=== PATIENT | female | born 1975 | race Caucasian/White ===

== ENCOUNTER 2024-08-20 14:56 | Inpatient (IN) | payer OTHER, SELFPAY ==
[2024-08-20] VITALS (16 sets, daily range): BP systolic 97–154; BP diastolic 46–97; BMI 37.2
[2024-08-20 13:34] LABS: % Basophils 0.6 % (0-2); % Eosinophils 3.7 % (0-6); % Immature Granulocytes 0.4 % (0-0.5); % Lymphocytes 34.8 % (20.5-51.1); % Monocytes 7.1 % (1.7-9.3); % Neutrophils 53.4 % (42.2-75.2); Absolute Basophils 0.1 10^3/uL (0-0.2); Absolute Eosinophils 0.3 10^3/uL (0-0.7); Absolute Lymphocytes 2.8 10^3/uL (1.2-3.4); Absolute Monocytes 0.6 10^3/uL (0.1-0.6); Absolute Neutrophils 4.2 10^3/uL (1.4-6.5); Hematocrit 42.2 % (37.0-47.0); Hemoglobin 13.4 g/dL (12.0-16.0); Mean Corp Hgb Conc. 31.8 g/dL (33.0-37.0); Mean Corpuscular Hgb 24.7 pg (27.0-31.0); Mean Corpuscular Volume 77.9 fL (81.0-99.0); Mean Platelet Volume 10.3 fL (7.4-10.4); Nucleated Red Blood Cells % 0 %; Platelet Count 265 10^3/uL (130-400); Red Blood Cell Count 5.42 10^6/uL (4.20-5.40); Red Cell Dist. Width 16.4 % (11.5-14.5); White Blood Cell Count 7.9 10^3/uL (4.8-10.8)
[2024-08-20] MEDS: CARDIZEM 10 MG IV (13:40)
[2024-08-20 14:09] LABS: HCG, Serum Qualitative Screen Negative
[2024-08-20] MEDS: NSS 1000 IV (14:10)
[2024-08-20] MEDS: CARDIZEM 125 IV (14:11)
[2024-08-20 14:12] LABS: ALT (SGPT) 35 U/L (0-35); AST (SGOT) 34 U/L (14-36); Albumin 4.7 g/dl (3.5-5.0); Alkaline Phosphatase 78 U/L (38-126); Blood Urea Nitrogen 16 mg/dl (7-17); Calcium 10.1 mg/dl (8.4-10.2); Carbon Dioxide 25 mmol/L (22-30); Chloride 108 mmol/L (98-107); Estimated Creatinine Clearance -9 ml/min; Glucose 96 mg/dl (70-99); Magnesium 2.4 mg/dl (1.6-2.3); Potassium 4.1 mmol/L (3.5-5.1); Sodium 145 mmol/L (135-145); Total Bilirubin 1.4 mg/dl (0.2-1.3); Total Protein 7.8 g/dl (6.3-8.2); eGFR > 60.00
--- NOTE | 2024-08-20 14:17 | ED.GENMED ---
History of Present Illness
<Shu Nielsen PA-C - Last Filed: 08/20/24 15:42>
General
Chief Complaint: Heart Rate Problem
Source: patient
Exam Limitations: none
Time Seen by Provider: 08/20/24 13:07
Nursing documentation reviewed up to this point in time: agreed with
History of Present Illness
History of Present Illness:
49 y/o F with h/o Htn (almodipine) NIDDM
suddenly at 1030 am felt palpitations while at rest; she did get some anxiety and tightness when her rate went up to 140s; called 911, found by EMS to be in afib with RVR, initial bps 140s/80s;
given 10 mg iv dilt;
on arrival felt a little better, with rate slightly slower in the 120-130s
no previuos cp, sob, leg swelling, recent travel
no h/o afib before
no change to meds
no vomiting/diarrhea, alcohol use
Past History
<Shu Nielsen PA-C - Last Filed: 08/20/24 15:42>
Past History
ED Past Medical History: HTN, NIDDM and Psychiatric
Social History
Tobacco: Non-smoker
Alcohol: None
Drug: None
Personal:
Living: with family
Review of Systems
<Shu Nielsen PA-C - Last Filed: 08/20/24 15:42>
Review of Systems
Allergies reviewed?: Yes
All Other Systems: Not applicable
Phy Exam
<Shu Nielsen PA-C - Last Filed: 08/20/24 15:42>
Physical Exam
Physical Exam:
GENERAL: Alert , in no apparent distress
EYE: pupils equal and reactive
NECK: Supple
ENT: o/p clr, mmm.
CARDIAC: Irregularly irregular
LUNGS: Clear breath sounds bilaterally, no acute respiratory distress, no wheezes/rales/rhonchi
ABDOMEN: Soft, without focal tenderness, no r/g, no cvat, normal bowel sounds
NEUROLOGICAL: Alert and oriented, no focal neuro deficits
SKIN: Warm and dry, skin intact.
MUSCULOSKELETAL: No edema, well perfused. neg elinor's sign
PSYCH: Normal and appropriate interaction.
Scores
<Shu Nielsen PA-C - Last Filed: 08/20/24 15:42>
[id number] Score for Afib Stroke Risk
Age in Years (65=0, 65-74=1, >/=75=2): <65
Sex (Female=+1): Female
Congestive Heart Failure History (Yes=+1): No
Hypertension History (Yes=+1): Yes
Stroke/TIA/Thromboembolism History (Yes=+2): No
Vascular Disease History (Yes=+1): No
Diabetes Mellitus (Yes=+1): No
Score: 3
Anticoagulation Recommendations: Recommend anticoagulation (as validated in nonvalvular fib)
<Maryjo Marx DO - Last Filed: 08/20/24 14:29>
[id number] Score for Afib Stroke Risk
Diabetes Mellitus (Yes=+1): Yes
Score: 3
Anticoagulation Recommendations: Recommend anticoagulation (as validated in nonvalvular fib)
Course
<Shu Nielsen PA-C - Last Filed: 08/20/24 15:42>
Orders/Labs/Results
Orders:
Orders
08/20/24
Electrocardiogram (*1) Stat
Reason for Study: Chest Pain
Comment: DONE NO ORDER ENTERED
08/20/24 13:10
Electrocardiogram (*1) Urgent
Reason for Study: Tachycardia
08/20/24 13:11
EKG- Treatment ONCE
Test Result ONCE
08/20/24 13:26
Complete Blood Count/With Diff Urgent
08/20/24 13:29
ECG [Electrocardiogram (*1)] Urgent
Reason for Study: Chest Pain
EKG- Treatment ONCE
08/20/24 13:35
Diltiazem HCl [Cardizem] 25 mg .ROUTE .STK-MED ONE
08/20/24 13:40
Diltiazem HCl [Cardizem] 10 mg IV NOW STA
08/20/24 13:43
Comprehensive Metabolic Panel Urgent
HCG, Serum Qualitative Screen Urgent
Magnesium Urgent
TSH Reflex To Free T4 Urgent
08/20/24 13:57
0.9% Sodium Chloride 1000 ml [Nss] 1,000 ml IV BOLUS
08/20/24 14:00
Diltiazem 125 mg/125 ml Nss [Cardizem] 125 mg in 125 ml IV PER PROTOCOL
Initial dose in mg/hr, then titrate:: 5
Titrate to keep:: Heart rate 80-100 bpm
Titrate by mg/hr:: 5 mg/hr
Frequency of titrations (minutes):: 15
Maximum dose in mg/hr:: 15
08/20/24 14:39
Apixaban [Eliquis] 10 mg PO ONCE ONE
08/20/24 14:43
Admit/Transfer Patient As Directed
Co-Sign Provider:
Level of Care: Inpatient admission
Assign to:: IVU
Physician / Group: daniella
Diagnosis: afib rvr
Reason for Hospitalization: afib rvr
Expected length of stay greater than two midnights?: Yes
ELOS- Estimated Length of Stay in days: 2
I certify the patient meets the requirements for IP care: Yes
Code Status As Directed
Resuscitation Status: Full Code
PRN Pain Medication Management As Directed
May give lesser potent ordered pain med per pt: Yes
preference::
Protocol:: Medication orders for pain may be administered in a
manner that supports deferring to patient preference
when the pt is:
- Requesting an ordered lesser potent pain medication.
Least to most potent pain medications are defined
as: acetaminophen < NSAID < tramadol < opioids
(morphine, oxycodone, hydromorphone).
- Requesting a lesser dose of the same medication IF
ORDERED.
- Requesting a less intrusive route of administration
if both routes are prescribed by the provider (PO <
IV).
Abnormal Lab Results
08/20/24 08/20/24
13: 13:43
RBC 5.42 H 10^6/uL
(4.20-5.40)
MCV 77.9 L fL
(81.0-99.0)
MCH 24.7 L pg
(27.0-31.0)
MCHC 31.8 L g/dL
(33.0-37.0)
RDW 16.4 H %
(11.5-14.5)
Chloride 108 H mmol/L
(98-107)
Magnesium 2.4 H mg/dl
(1.6-2.3)
Total Bilirubin 1.4 H mg/dl
(0.2-1.3)
08/20/24 13:26
08/20/24 13:43
Vital Signs
Initial and Last Documented VS:
Initial Vital Signs
Temp
98.7 F
08/20/24 13:07
Last Documented Vital Signs
Temp Pulse Resp BP Pulse Ox
98.7 F 145 15 110/80 97
08/20/24 13:07 08/20/24 13:33 08/20/24 13:33 08/20/24 13:33 08/20/24 13:33
<Maryjokristie Marx, DO - Last Filed: 08/20/24 14:29>
Orders/Labs/Results
Orders:
Orders
08/20/24
Electrocardiogram (*1) Stat
Reason for Study: Chest Pain
Comment: DONE NO ORDER ENTERED
08/20/24 13:10
Electrocardiogram (*1) Urgent
Reason for Study: Tachycardia
08/20/24 13:11
EKG- Treatment ONCE
Test Result ONCE
08/20/24 13:26
Complete Blood Count/With Diff Urgent
08/20/24 13:29
ECG [Electrocardiogram (*1)] Urgent
Reason for Study: Chest Pain
EKG- Treatment ONCE
08/20/24 13:35
Diltiazem HCl [Cardizem] 25 mg .ROUTE .STK-MED ONE
08/20/24 13:40
Diltiazem HCl [Cardizem] 10 mg IV NOW STA
08/20/24 13:43
Comprehensive Metabolic Panel Urgent
HCG, Serum Qualitative Screen Urgent
Magnesium Urgent
TSH Reflex To Free T4 Urgent
08/20/24 13:57
0.9% Sodium Chloride 1000 ml [Nss] 1,000 ml IV BOLUS
08/20/24 14:00
Diltiazem 125 mg/125 ml Nss [Cardizem] 125 mg in 125 ml IV PER PROTOCOL
Initial dose in mg/hr, then titrate:: 5
Titrate to keep:: Heart rate 80-100 bpm
Titrate by mg/hr:: 5 mg/hr
Frequency of titrations (minutes):: 15
Maximum dose in mg/hr:: 15
08/20/24 14:39
Apixaban [Eliquis] 10 mg PO ONCE ONE
08/20/24 14:43
Admit/Transfer Patient As Directed
Co-Sign Provider:
Level of Care: Inpatient admission
Assign to:: IVU
Physician / Group: daniella
Diagnosis: afib rvr
Reason for Hospitalization: afib rvr
Expected length of stay greater than two midnights?: Yes
ELOS- Estimated Length of Stay in days: 2
I certify the patient meets the requirements for IP care: Yes
Code Status As Directed
Resuscitation Status: Full Code
PRN Pain Medication Management As Directed
May give lesser potent ordered pain med per pt: Yes
preference::
Protocol:: Medication orders for pain may be administered in a
manner that supports deferring to patient preference
when the pt is:
- Requesting an ordered lesser potent pain medication.
Least to most potent pain medications are defined
as: acetaminophen < NSAID < tramadol < opioids
(morphine, oxycodone, hydromorphone).
- Requesting a lesser dose of the same medication IF
ORDERED.
- Requesting a less intrusive route of administration
if both routes are prescribed by the provider (PO <
IV).
Abnormal Lab Results
08/20/24 08/20/24
13:26 13:43
RBC 5.42 H 10^6/uL
(4.20-5.40)
MCV 77.9 L fL
(81.0-99.0)
MCH 24.7 L pg
(27.0-31.0)
MCHC 31.8 L g/dL
(33.0-37.0)
RDW 16.4 H %
(11.5-14.5)
Chloride 108 H mmol/L
(98-107)
Magnesium 2.4 H mg/dl
(1.6-2.3)
Total Bilirubin 1.4 H mg/dl
(0.2-1.3)
08/20/24 13:26
10/07/24 13:43
Vital Signs
Initial and Last Documented VS:
Initial Vital Signs
Temp
98.7 F
08/20/24 13:07
Last Documented Vital Signs
Temp Pulse Resp BP Pulse Ox
98.7 F 145 15 110/80 97
08/20/24 13:07 08/20/24 13:33 08/20/24 13:33 08/20/24 13:33 08/20/24 13:33
<Shu Nielsen PA-C - Last Filed: 08/20/24 15:42>
MDM/Problems Addressed
Differential Diagnosis Includes:
new onset afib with RVR
MDM/Problems Addressed:
slight improvement in rate but still in fib here with rvr with what looks like rate related st depressions; no ches tpain, no distress;
she looks like she is going in and out of sinus/flipping back and forth
my attending saw her, we gave another 10 mg iv dilt and she is going in and out of afib, bewteen a fib and sinus rhythm
rate 110s; bp stable
d/w dr. carbone who recommended IV diltiazem drip
will amdit to hospitalist
chadsvasc 2
eliquis ordered
<Shu Nielsen PA-C - Last Filed: 08/20/24 15:42>
*Critical Care Note
Total Time (30-74mins, 75-104mins- exclusive of procedures): Not Applicable
ED Attending Note
<Shu Nielsen PA-C - Last Filed: 08/20/24 15:42>
-
Portions of this chart may have been created with voice recognition software.� Occasional wrong word or��sound alike� substitutions may have occurred due to the inherent limitations of voice recognition software.
<Maryjo Marx DO - Last Filed: 08/20/24 14:29>
ED Attending Note
Patient seen and examined by attending physician: Yes
I performed the substantive portion of visit, reviewed & personally made and approve the management plan that is documented in note by myself or BRISEIDA.: Yes
I performed a history and physical exam of patient and discussed management with resident, I reviewed resident's note and agree with documented findings and plan of care.: Yes
ED Attending Note:
49-year-old female with history of hypertension and anxiety presenting to the emergency department for palpitations. Patient reports symptoms started prior to arrival, not exertional. Denies associated chest pain or difficulty breathing. Patient
noted to be in atrial fibrillation upon arrival, denies any known history of atrial fibrillation or known cardiac issues. Denies fever or recent illness. Vital signs significant for tachycardia and hypertension.
On exam, patient is resting comfortably, no acute distress. Benign examination with the exception of A-fib with RVR, confirmed by EKG. Patient received 10 mg diltiazem by medics prior to arrival. On the monitor, appears to be going in and out of
atrial fibrillation. Will send laboratory analysis and try additional dose of diltiazem.
14:00 - Patient remains in A-fib. In discussion with cardiology, recommending diltiazem drip and admission. Per [id number], recommendation for anticoagulation. Patient in agreement with plan for admission
Discharge Plan
Departure
Patient Disposition: Admit
Admit to: Telemetry
Presentation/result/management discussed w/ accepting MD/DO: Hospitalist
Condition: Fair
Discharge Problem:
Atrial fibrillation with rapid ventricular response
Interventions
Interventions:
*Risk Screen - Suicide Last Done: 08/20/24 13:11
*General Assessment Last Done: 08/20/24 13:11
*Neglect/Abuse Screening Last Done: 08/20/24 13:11
ED- Cardiac Assessment Last Done: 08/20/24 13:28
ED- Pulmonary Assessment Last Done: 08/20/24 13:28
--- NOTE | 2024-08-20 14:45 | CON.CAR ---
Consultation
Consultation Request
Date/Time Consultation Requested: 08/20 1420
Date/Time Consultation Performed: 08/200
Requesting Provider: Shu Nielsen
Performing Provider: Anirudh Lucero
Reason for Consultation: atrial fibrillation
Medical History
-
Chief Complaint: Palpitations
History of Present Illness:
49-year-old female with a history of hypertension, anxiety, and prediabetes who presents with palpitations. She states that this morning after having her morning black tea and going up the stairs, she suddenly felt her heart racing. She assumed
that it would go away but it continued so she eventually called 911. She denies any chest pain, shortness of breath, lightheadedness, dizziness, syncope, or presyncope with this episode or thereafter. She has no history of heart disease but is
diagnosed with hypertension for which she takes amlodipine 5 mg daily and anxiety for which she takes sertraline 100 mg daily. She was on Ozempic, which was recently switched to Mounjaro (last dose Tuesday). In terms of family history, her mother
had several SVT ablations and hypertension. No other significant family history of cardiac disease. She drinks 2 cups of black tea per day but no other caffeine. No alcohol. She snores at night but has never been told that she has apneic events.
No history of thyroid issues.
Past Medical History
Past Medical History: Other (As above)
Social History
Tobacco: Non-Smoker
Alcohol: None
Drug: None
Personal:
Family History
Family History: Other (As above)
Allergies / Home Medications
Allergy/AdvReac Type Severity Reaction Status Date / Time
No Known Allergies Allergy Unverified 08/20/24 13:18
�Medication �Instructions �Recorded �Confirmed �Type
amlodipine 5 mg tablet (Norvasc) 5 mg PO HS 08/20/24 08/20/24 History
famotidine 20 mg tablet (Pepcid) 20 mg PO DAILYPRN PRN GERD 08/20/24 08/20/24 History
ruxolitinib 1.5 % topical cream 1 applic topical BID BOTH 08/20/24 08/20/24 History
(Opmarinura) HANDS/FEET
sertraline 100 mg tablet 100 mg PO HS 08/20/24 08/20/24 History
tirzepatide 7.5 mg/0.5 mL 7.5 mg SC FR 08/20/24 08/20/24 History
subcutaneous pen injector
(Ping)
Review of Systems
-
History Source: Patient
All other systems: Negative unless noted
Physical Exam
Vital Signs
Temp Pulse Resp BP Pulse Ox
98.7 F 145 15 110/80 97
08/20/24 13:07 08/20/24 13:33 08/20/24 13:33 08/20/24 13:33 08/20/24 13:33
Lab Results
08/20/24 13:26
08/20/24 13:43
ECG: Atrial fibrillation which then transitions to sinus tachycardia, inferior ST depressions when patient is in A-fib which resolve in sinus rhythm
Physical Exam
General: Well Developed and Well Nourished
Cardiac: S1/S2 and Irregular Rhythm (Tachycardic); Negative Murmur, Rub, Peripheral Edema or JVD
Impression / Plan
-
49-year-old female with a history of hypertension, anxiety, and prediabetes who presents with new onset atrial fibrillation.
Atrial fibrillation, acute
-No clear trigger. No history of alcohol use, excessive caffeine, thyroid abnormalities or diagnosed AMRIK
-So far has received IV diltiazem x 2. Start diltiazem infusion
-Monitor telemetry
-[id number] 2. Start Eliquis 5 mg twice daily
-Will need risk factor modification including weight loss
-Recommend outpatient sleep study
-Follow-up echocardiogram
Hypertension, chronic, stable
-Continue home amlodipine 5 mg for now
-Will likely transition to beta-ralph prior to discharge
Anxiety, chronic, stable
-Continue home sertraline
Data Reviewed
-
EKG: Tracing Personally Visualized and interpreted
Labs: Labs Reviewed by me
--- NOTE | 2024-08-20 14:48 | HPS.HSE ---
Family Physician
-
Family Physician: CATRACHO Hagen
Chief Complaint
-
palpitations
History of Present Illness
49-year-old female past medical history of hypertension, prediabetes, atopic dermatitis, anxiety/depression presenting with palpitations suddenly this morning while at rest. Her heart rate went up to 140s. She denies chest pain or shortness of
breath. She called 911 and was found to be in A-fib with RVR by EMS. She was given Cardizem by EMS with some improvement. She denies nausea vomiting or diarrhea.
Mother with history of SVT and hypertension.
She denies smoking or alcohol use.
Medical History
Past Medical History
Past Medical History: Reports Other ( hypertension, prediabetes, atopic dermatitis, anxiety/depression)
Past Surgical History: Reports Other (Cholecystectomy, bilateral knee replacements,)
Social History
Tobacco: Non-smoker
Alcohol: None
Drug: None
Family History
Family History: Not pertinent
Allergies / Home Medications
Allergies reflects when Allergies were last updated in [employer].
Home Medications with original date entered in [employer]
Allergy/Medication List:
Allergies
Allergy/AdvReac Type Severity Reaction Status Date / Time
No Known Allergies Allergy Unverified 08/20/24 13:18
Home Medications
amlodipine 5 mg tablet (Norvasc) 5 mg PO HS 08/20/24
famotidine 20 mg tablet (Pepcid) 20 mg PO DAILYPRN PRN GERD 08/20/24
ruxolitinib 1.5 % topical cream (Opzelura) 1 applic topical BID BOTH HANDS/FEET 08/20/24
sertraline 100 mg tablet 100 mg PO HS 08/20/24
tirzepatide 7.5 mg/0.5 mL subcutaneous pen injector (Mounjaro) 7.5 mg SC FR 08/20/24
Review of Systems
-
History Source: Patient
A 12 point ROS was completed and negative except as noted: Yes
Constitutional: Reports No Symptoms
EENT: Reports No Symptoms
Respiratory: Reports No Symptoms
Cardiac: Reports No Symptoms
Abdomen/GI: Reports No Symptoms
: Reports No Symptoms
Musculoskeletal: Reports No Symptoms
Skin: Reports No Symptoms
Neurological: Reports No Symptoms
Endocrine: Reports No Symptoms
Hematologic/Lymphatic: Reports No Symptoms
Psych: Reports No Symptoms
Physical Exam
Vital Signs
Vital Signs
Temp Pulse Resp BP Pulse Ox
98.7 F 145 15 110/80 97
08/20/24 13:07 08/20/24 13:33 08/20/24 13:33 08/20/24 13:33 08/20/24 13:33
Physical Exam
General: Well Developed, Well Nourished and No Apparent Distress
HEENT: NormoCephalic, Moist mucous membranes and Atraumatic
Respiratory: Clear
Cardiac: S1/S2 and Regular Rhythm; No Murmur or Rub
GI: Soft, Non Tender, Non Distended and Normal Bowel Sounds; No Organomegaly
Rectal: Deferred by Provider
Musculoskeletal: No Clubbing, No Cyanosis and No Edema
Skin: No Rash
Neuro: Nonfocal/grossly intact
Laboratory Results
-
08/20/24 13:26
08/20/24 13:43
Laboratory Results
Total Bilirubin 1.4 mg/dl (0.2-1.3) H 08/20/24 13:43
AST 34 U/L (14-36) 08/20/24 13:43
ALT 35 U/L (0-35) 08/20/24 13:43
Alkaline Phosphatase 78 U/L (38-126) 08/20/24 13:43
Data Reviewed
-
Lab Data: Labs Reviewed by me
Old Records: Reviewed
Impression/Plan
-
IMPRESSION:
PLAN:
# New onset atrial fibrillation with RVR
-IV fluids given
-Cardizem drip
-Eliquis started
-Check TSH
-Check echo
-Cardiology consulted
Essential hypertension
-Hold amlodipine
Atopic dermatitis
-Continue Opzelura
Prediabetes
Obesity
-On Mounjaro
Anxiety/depression
-Continue sertraline
Full code
DVT prophylaxis�Eliquis
Regular diet
[2024-08-20] MEDS: ELIQUIS 10 MG PO (15:04)
[2024-08-20 15:16] LABS: TSH Reflex To Free T4 2.62 uIU/ml (0.47-4.68)
[2024-08-20] MEDS: LOPRESSOR 25 MG PO ×2 (15:55→22:39)
[2024-08-20] MEDS: ZOLOFT 100 MG PO (22:40)
[2024-08-21 06:30] VITALS: BP 134/56
[2024-08-21 06:48] LABS: % Basophils 0.8 % (0-2); % Eosinophils 3.8 % (0-6); % Immature Granulocytes 0.5 % (0-0.5); % Lymphocytes 29.9 % (20.5-51.1); % Monocytes 7.1 % (1.7-9.3); % Neutrophils 57.9 % (42.2-75.2); Absolute Basophils 0.1 10^3/uL (0-0.2); Absolute Eosinophils 0.3 10^3/uL (0-0.7); Absolute Monocytes 0.5 10^3/uL (0.1-0.6); Absolute Neutrophils 3.8 10^3/uL (1.4-6.5); Hematocrit 37.2 % (37.0-47.0); Hemoglobin 12.1 g/dL (12.0-16.0); Mean Corp Hgb Conc. 32.5 g/dL (33.0-37.0); Mean Corpuscular Hgb 25.9 pg (27.0-31.0); Mean Corpuscular Volume 79.5 fL (81.0-99.0); Mean Platelet Volume 10.2 fL (7.4-10.4); Nucleated Red Blood Cells % 0 %; Platelet Count 215 10^3/uL (130-400); Red Blood Cell Count 4.68 10^6/uL (4.20-5.40); Red Cell Dist. Width 16.4 % (11.5-14.5); White Blood Cell Count 6.6 10^3/uL (4.8-10.8)
[2024-08-21 07:06] LABS: ALT (SGPT) 34 U/L (0-35); AST (SGOT) 34 U/L (14-36); Albumin 4.5 g/dl (3.5-5.0); Alkaline Phosphatase 65 U/L (38-126); Blood Urea Nitrogen 20 mg/dl (7-17); Carbon Dioxide 25 mmol/L (22-30); Chloride 106 mmol/L (98-107); Estimated Creatinine Clearance 87 ml/min; Glucose 99 mg/dl (70-99); Potassium 4.2 mmol/L (3.5-5.1); Sodium 143 mmol/L (135-145); Total Bilirubin 1.3 mg/dl (0.2-1.3); Total Protein 7.3 g/dl (6.3-8.2); eGFR > 60.00
--- NOTE | 2024-08-21 08:52 | W.PN.CD ---
Today's Communication / Plan
-
Now in sinus rhythm
Continue metoprolol 25 mg twice daily on discharge. Stop amlodipine.
Continue Eliquis 5 mg twice daily on discharge
Follow-up echocardiogram
Cardiology follow-up here versus [facility]
Impression / Plan
-
49-year-old female with a history of hypertension, anxiety, and prediabetes who presents with new onset atrial fibrillation.
Atrial fibrillation, acute, now in sinus rhythm:
-No clear trigger. No history of alcohol use, excessive caffeine, thyroid abnormalities or diagnosed AMRIK
-Initially required diltiazem infusion. Now transitioned to metoprolol 25 mg twice daily which she should continue on discharge
-Monitor telemetry
-[id number] 2. Continue Eliquis 5 mg twice daily
-Will need risk factor modification including weight loss
-Recommend outpatient sleep study
-Follow-up echocardiogram
-Follow-up with cardiology. She will let us know if she wants to do this here or within the [facility] system.
Hypertension, chronic, stable
-Stop amlodipine. She will monitor BPs at home to see if she needs up titration of metoprolol or alternative antihypertensive.
Anxiety, chronic, stable
-Continue home sertraline
Subjective: Patient feels better now that out of A-fib. We discussed what her diagnosis means going forward and the overall prognosis. She will decide whether or not she wants to follow-up with us here or with [facility] cardiology since her primary
care doctor is in the [facility] system. Review of telemetry shows sinus rhythm with heart rate mostly in the 50s to 60s since 3 PM yesterday when A-fib stopped.
Physical Exam
Vital Signs/Labs
Vital Signs
Temp Pulse Resp BP Pulse Ox
98.7 F 66 12 134/56 98
08/20/24 13:07 08/21/24 06:45 08/20/24 22:43 08/21/24 06:30 08/21/24 06:30
08/20/24 08/21/24 08/22/24
06:59 06:59 06:59
Actual Weight 101.3 kg
08/21/24 06:36
08/21/24 06:36
Magnesium 2.4 mg/dl (1.6-2.3) H 08/20/24 13:43
Physical Exam
Constitutional: No acute distress and Comfortable
Cardiovascular: Rhythm & rate is regular, Pedal edema is absent, JVD pressure is normal and Murmur/rub/gallop absent
Respiratory: Respiratory effort normal and Lungs clear to auscul.
Data Reviewed
-
ECG 08/20/24 20:51: Normal sinus rhythm, heart rate 64, no evidence of ischemia
Date of Service: August 21, 2024
Medical Decision Making: Reviewed Test Results
EKG: Tracing Personally Visualized and interpreted
Echo: Ordered by me
Labs: Labs Reviewed by me
Total Time Spent with Patient (in minutes): 35
[2024-08-21 09:09] VITALS: BP 127/69
[2024-08-21] MEDS: LOPRESSOR 25 MG PO (09:09)
[2024-08-21] MEDS: ELIQUIS 5 MG PO (09:09)
--- NOTE | 2024-08-21 10:18 | W.DS.TRANS ---
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
-
Discharge Instructions:
Discharge Diagnosis/Procedures Paroxysmal atrial fibrillation, new onset
Diet Regular
Instructions:
Stand-Alone Forms:
Changes to Home Medications: Yes
Discharge Medications:
DC Medications w/original date entered in [employer]
famotidine 20 mg tablet (Pepcid) 20 mg PO DAILYPRN PRN GERD 08/20/24
ruxolitinib 1.5 % topical cream (Opzelura) 1 applic topical BID BOTH HANDS/FEET 08/20/24
sertraline 100 mg tablet 100 mg PO HS 08/20/24
tirzepatide 7.5 mg/0.5 mL subcutaneous pen injector (Mounjaro) 7.5 mg SC FR 08/20/24
apixaban 5 mg tablet (Eliquis) 5 mg PO BID #60 tabs 08/21/24
metoprolol tartrate 25 mg tablet 25 mg PO BID #60 tabs 08/21/24
Home Medication Changes
Amlodipine discontinued.
Apixaban and metoprolol initiated
Pending Results: Yes
Additional Pending Results:
Echocardiogram
[2024-08-21 11:16] VITALS: BP 122/72
== END 2024-08-21 11:23 | disposition home or self-care (01) | DRG 310 ==
LOC: ED 14:56
PROVIDERS: Physician Assistant; ADMITTING PHYSICIAN Hospitalist; ATTENDING PHYSICIAN Internal Medicine; CONSULT PHYSICIAN Internal Medicine Cardiovascular Disease; EMERGENCY PHYSICIAN Student in an Organized Health Care Education/Training Program; FAMILY PHYSICIAN Nurse Practitioner Primary Care
DX: I48.0 Paroxysmal atrial fibrillation (principal); I10 Essential (primary) hypertension; E11.9 Type 2 diabetes mellitus without complications; F41.9 Anxiety disorder, unspecified; E66.9 Obesity, unspecified; Z68.37 Body mass index [BMI] 37.0-37.9, adult; Z79.01 Long term (current) use of anticoagulants; Z79.84 Long term (current) use of oral hypoglycemic drugs
CPT/HCPCS: 80053; 83735; 84443; 84703; 85025; 93005; 93306; 96361; 96374; 96376; 99285